=== PATIENT | male | born 1970 | race Two or more races ===

== ENCOUNTER 2016-06-27 17:59 | Emergency (ER) | payer MEDICAID ==
[~2016-06-27] VITALS: Ht 185.4 cm; Wt 74.8 kg
[~2016-06-27 17:59] MED LIST: LAMO200T34; LEVE100020; RISP1TAB60
[2016-06-27 18:27] VITALS: BP 108/66
== END 2016-06-27 18:30 | disposition home or self-care (01) ==
LOC: EDBD 17:59 → ER 18:03
DX: F41.9 Anxiety disorder, unspecified (principal); F17.210 Nicotine dependence, cigarettes, uncomplicated; F11.20 Opioid dependence, uncomplicated; F12.10 Cannabis abuse, uncomplicated; F32.9 Major depressive disorder, single episode, unspecified; Z90.89 Acquired absence of other organs; Z87.820 Personal history of traumatic brain injury

== ENCOUNTER 2016-07-11 09:52 | Emergency (ER) | payer MEDICAID ==
[~2016-07-11] VITALS: Ht 185.4 cm; Wt 78.5 kg
[2016-07-11] MEDS ORDERED: SOD CHL 0.45% 1,000 ML IV ONE (10:45)
[2016-07-11] MEDS ORDERED: ACCU-CHEK COMFORT CURVE STRIP VI ONE (10:45)
[2016-07-11 10:48] LABS: Basophils # (auto) 0.1 uL; Eosinophils # (auto) 0.2 uL; Eosinophils % (auto) 3.5 % (0.0-7.0); Hematocrit 48.3 % (41.0-53.0); Hemoglobin 16.3 g/dL (13.5-17.5); Lymphocytes # (auto) 0.8 uL; Lymphocytes % (auto) 13.5 % (10.0-50.0); Mean Corpuscular Hemoglobin 32.5 pg (28.0-32.0); Mean Corpuscular Hgb Conc. 33.7 g/dL (32.0-36.0); Mean Corpuscular Volume 96.5 fL (80.0-100.0); Mean Platelet Volume 8.4 fL (7.4-10.4); Monocytes # (auto) 0.6 uL; Monocytes % (auto) 10.8 % (0.0-12.0); Neutrophils # (auto) 4.1 uL; Neutrophils % (auto) 71.2 % (37.0-80.0); Platelet Count (auto) 237 10^3/uL (140-450); Red Cell Distribution Width 13.9 % (11.6-16.0); White Blood Cell 5.7 10^3/uL (4.4-10.8)
[2016-07-11 11:15] LABS: Albumin 4.3 g/dL (3.4-5.0); BUN/Creatinine Ratio 8.5; Bilirubin, Total 0.4 mg/dL (0.2-1.0); Calcium 9.2 mg/dL (8.5-10.1); Total Protein 8.4 g/dL (6.4-8.2)
[2016-07-11 11:46] LABS: Urine Bilirubin Negative (Negative); Urine Color Yellow (Yellow); Urine Glucose Normal (Normal); Urine Ketone Negative (Negative); Urine Nitrite Negative (Negative); Urine RBC 1 /hpf (0 - 3); Urine Urobilinogen Normal (Negative)
[2016-07-11 11:47] LABS: Urine Blood 1+ /uL (Negative)
[2016-07-11] MEDS ORDERED: MORPHINE SULF INJ 2 MG/ML SYRINGE 1ML IV ONE (12:15)
[2016-07-11] MEDS ORDERED: SODIUM CHLORIDE 0.9% 1,000 ML IV ONE (12:15)
[2016-07-11] MEDS ORDERED: LEVETIRACETAM INJ 1,000 MG in SODIUM CHL 0.9% 100 ML IV ONE (12:15)
[2016-07-11] MEDS ORDERED: ONDANSETRON HCL 4 MG/2 ML VIAL IV ONE (12:15)
[2016-07-11 14:48] VITALS: BP 125/84
== END 2016-07-11 14:48 | disposition home or self-care (01) ==
LOC: EDBD 09:52 → ER 09:58
DX: R56.9 Unspecified convulsions (principal); R51 Headache; F17.210 Nicotine dependence, cigarettes, uncomplicated; F11.10 Opioid abuse, uncomplicated; F12.10 Cannabis abuse, uncomplicated
CPT/HCPCS: 36415; 70450; 80053; 80307; 81001; 82542; 82962; 83735; 85025; 93005; 94761; 96361; 96365; 99285; J1953; J7030

== ENCOUNTER 2016-09-07 21:23 | Inpatient (IN) | payer MEDICAID ==
[~2016-09-07] VITALS: Ht 185.4 cm; Wt 77.1 kg
[~2016-09-07 21:23] MED LIST changes: -LAMO200T34; +LAMO200T34 PO; -LEVE100020; +LEVE100020 PO
[2016-09-08] MEDS ORDERED: LORazepam 2MG/ML-1ML VIAL IV ONE (06:15)
[2016-09-08 07:53] LABS: Basophils # (auto) 0 uL; Basophils % (auto) 0.6 % (0.0-2.0); CONDITION Y; Eosinophils # (auto) 0.3 uL; Eosinophils % (auto) 3.8 % (0.0-7.0); Hematocrit 42.8 % (41.0-53.0); Hemoglobin 14.3 g/dL (13.5-17.5); Lymphocytes # (auto) 1.2 uL; Lymphocytes % (auto) 17.2 % (10.0-50.0); Mean Corpuscular Hemoglobin 32.2 pg (28.0-32.0); Mean Corpuscular Hgb Conc. 33.4 g/dL (32.0-36.0); Mean Corpuscular Volume 96.4 fL (80.0-100.0); Mean Platelet Volume 8.4 fL (7.4-10.4); Monocytes # (auto) 0.8 uL; Neutrophils # (auto) 4.6 uL; Neutrophils % (auto) 67.4 % (37.0-80.0); Platelet Count (auto) 238 10^3/uL (140-450); Red Cell Distribution Width 12.8 % (11.6-16.0); White Blood Cell 6.9 10^3/uL (4.4-10.8)
[2016-09-08 08:12] LABS: INR 0.98 (0.9-1.15); Partial Thromboplastin Time 25.6 sec (22.64-33.71); Prothrombin Time 10.7 sec (9.37-12.3)
[2016-09-08 08:24] LABS: Albumin 3.6 g/dL (3.4-5.0); Alkaline Phosphatase 76 U/L (45-117); Anion Gap 4 (5-15); Aspartate Aminotransferase 77 U/L (15-37); BUN/Creatinine Ratio 22.7; Bilirubin, Total 0.9 mg/dL (0.2-1.0); Blood Urea Nitrogen 15 mg/dL (7-18); Calcium 8.5 mg/dL (8.5-10.1); Carbon Dioxide 29 mmol/L (21-32); Chloride 105 mmol/L (98-107); GFR African American 166 mL/min; GFR Non-African American 138 mL/min; Glucose 103 mg/dL (74-106); Magnesium 2.5 mg/dL (1.6-2.6); Potassium 3.5 mmol/L (3.5-5.1); Sodium 138 mmol/L (136-145)
[2016-09-08] MEDS ORDERED: MORPHINE SULF INJ 2 MG/ML SYRINGE 1ML IV PRN (08:30)
[2016-09-08] MEDS ORDERED: PROMETHAZINE HCL 25 MG/ML 1ML IV PRN (08:30)
[2016-09-08] MEDS ORDERED: LORazepam 2MG/ML-1ML VIAL IV PRN (08:30)
[2016-09-08] MEDS ORDERED: NITROGLYCERIN 0.4 MG SL TAB SL PRN (08:30)
[2016-09-08] MEDS ORDERED: LACTULOSE 20Gm/30ML SOLN PO PRN (08:30)
[2016-09-08] MEDS ORDERED: HYDROcodone-ACET 5/325MG TAB PO PRN (08:30)
[2016-09-08] MEDS ORDERED: ACETAMINOPHEN 500 MG TAB PO PRN (08:30)
[2016-09-08] MEDS ORDERED: MORPHINE SULFATE 4 MG/ML SYRG IV PRN (08:30)
[2016-09-08] MEDS: SODIUM CHLORIDE 0.9% 1,000 ML IV SCH ×2 (08:33→19:41)
[2016-09-08] MEDS: LEVETIRACETAM 500 MG TAB PO SCH ×2 (10:00→21:34)
[2016-09-08] MEDS: ENOXAPARIN SOD 40 MG/0.4 ML SYRINGE SC SCH (10:00)
[2016-09-08] MEDS ORDERED: lamoTRIgine 100 MG TAB PO SCH (10:00)
[2016-09-08] MEDS: risperiDONE 1 MG TAB PO SCH (10:00)
[2016-09-08 17:29] VITALS: BP 114/71
[2016-09-08] MEDS ORDERED: chlordiazePOXIDE HCL 25 MG CAP PO PRN (18:45)
[2016-09-08] MEDS ORDERED: THIAMINE HCL 100 MG/ML 2ML VIAL IV ONE (18:45)
[2016-09-08 20:00] VITALS: BP 118/53
[2016-09-08] MEDS: lamoTRIgine 100 MG TAB PO SCH (21:35)
[2016-09-08] MEDS: TEMAZEPAM 15 MG CAP PO PRN (21:35)
[2016-09-08 21:36] VITALS: BP 118/53
[2016-09-09] VITALS (7 sets, daily range): BP systolic 101–120; BP diastolic 53–64
[2016-09-09 06:40] LABS: Basophils # (auto) 0 uL; Basophils % (auto) 0.5 % (0.0-2.0); CONDITION Y; Eosinophils # (auto) 0.3 uL; Eosinophils % (auto) 4.3 % (0.0-7.0); Hematocrit 41.4 % (41.0-53.0); Hemoglobin 14.2 g/dL (13.5-17.5); Lymphocytes # (auto) 1.7 uL; Lymphocytes % (auto) 22.5 % (10.0-50.0); Mean Corpuscular Hemoglobin 32.7 pg (28.0-32.0); Mean Corpuscular Hgb Conc. 34.3 g/dL (32.0-36.0); Mean Corpuscular Volume 95.3 fL (80.0-100.0); Mean Platelet Volume 8.9 fL (7.4-10.4); Monocytes # (auto) 0.9 uL; Monocytes % (auto) 11.8 % (0.0-12.0); Neutrophils # (auto) 4.5 uL; Neutrophils % (auto) 60.9 % (37.0-80.0); Platelet Count (auto) 231 10^3/uL (140-450); Red Cell Distribution Width 12.8 % (11.6-16.0); White Blood Cell 7.5 10^3/uL (4.4-10.8)
[2016-09-09 06:52] LABS: Albumin 3.4 g/dL (3.4-5.0); BUN/Creatinine Ratio 21.4; Calcium 8.4 mg/dL (8.5-10.1); Potassium 3.8 mmol/L (3.5-5.1)
[2016-09-09 06:54] LABS: Bilirubin, Total 0.4 mg/dL (0.2-1.0); Total Protein 6.8 g/dL (6.4-8.2)
[2016-09-09] MEDS: LEVETIRACETAM 500 MG TAB PO SCH ×2 (09:29→22:17)
[2016-09-09] MEDS: THIAMINE HCL 100 MG/ML 2ML VIAL IV SCH (09:29)
[2016-09-09] MEDS: ENOXAPARIN SOD 40 MG/0.4 ML SYRINGE SC SCH (09:30)
[2016-09-09] MEDS: lamoTRIgine 100 MG TAB PO SCH ×2 (09:30→22:18)
[2016-09-09] MEDS: risperiDONE 1 MG TAB PO SCH (09:30)
[2016-09-09] MEDS: SODIUM CHLORIDE 0.9% 1,000 ML IV SCH (09:30)
[2016-09-09] MEDS: TEMAZEPAM 15 MG CAP PO PRN (22:18)
[2016-09-10] MEDS: SODIUM CHLORIDE 0.9% 1,000 ML IV SCH ×2 (00:17→13:37)
[2016-09-10 05:00] VITALS: BP 95/60
[2016-09-10 09:04] VITALS: BP 99/50
[2016-09-10] MEDS: THIAMINE HCL 100 MG/ML 2ML VIAL IV SCH (10:32)
[2016-09-10] MEDS: lamoTRIgine 100 MG TAB PO SCH ×2 (10:33→21:46)
[2016-09-10] MEDS: ENOXAPARIN SOD 40 MG/0.4 ML SYRINGE SC SCH (10:33)
[2016-09-10] MEDS: LEVETIRACETAM 500 MG TAB PO SCH ×2 (10:34→21:46)
[2016-09-10] MEDS: risperiDONE 1 MG TAB PO SCH (10:34)
[2016-09-10 12:33] VITALS: BP 110/67
[2016-09-10 17:15] VITALS: BP 99/56
[2016-09-10 20:00] VITALS: BP 97/76
[2016-09-10 22:00] VITALS: BP 146/74
[2016-09-11] MEDS: SODIUM CHLORIDE 0.9% 1,000 ML IV SCH ×2 (02:57→16:17)
[2016-09-11 05:00] VITALS: BP 108/59
[2016-09-11 08:52] VITALS: BP 106/58
[2016-09-11] MEDS: THIAMINE HCL 100 MG/ML 2ML VIAL IV SCH (10:05)
[2016-09-11] MEDS: LEVETIRACETAM 500 MG TAB PO SCH ×2 (10:05→21:30)
[2016-09-11] MEDS: lamoTRIgine 100 MG TAB PO SCH ×2 (10:05→21:30)
[2016-09-11] MEDS: risperiDONE 1 MG TAB PO SCH (10:06)
[2016-09-11] MEDS: ENOXAPARIN SOD 40 MG/0.4 ML SYRINGE SC SCH (10:06)
[2016-09-11 12:21] VITALS: BP 100/52
[2016-09-11 17:08] VITALS: BP 112/70
[2016-09-11] MEDS: TEMAZEPAM 15 MG CAP PO PRN (21:30)
[2016-09-11 22:00] VITALS: BP 104/56
[2016-09-12 05:00] VITALS: BP 96/53
[2016-09-12] MEDS: SODIUM CHLORIDE 0.9% 1,000 ML IV SCH (05:54)
[2016-09-12 08:35] VITALS: BP 90/59
[2016-09-12] MEDS: THIAMINE HCL 100 MG/ML 2ML VIAL IV SCH (10:06)
[2016-09-12] MEDS: risperiDONE 1 MG TAB PO SCH (10:07)
[2016-09-12] MEDS: lamoTRIgine 100 MG TAB PO SCH (10:07)
[2016-09-12] MEDS: LEVETIRACETAM 500 MG TAB PO SCH (10:07)
[2016-09-12] MEDS: ENOXAPARIN SOD 40 MG/0.4 ML SYRINGE SC SCH (10:07)
[2016-09-12 13:12] VITALS: BP 93/60
[2016-09-12 17:08] VITALS: BP 99/60
[2016-09-12 21:15] VITALS: BP 117/61
[2016-09-13] MEDS: lamoTRIgine 100 MG TAB PO SCH (01:55)
[2016-09-13] MEDS: LEVETIRACETAM 500 MG TAB PO SCH (01:55)
[2016-09-13 06:01] VITALS: BP 113/55
[2016-09-13 08:38] VITALS: BP 101/54
== END 2016-09-13 09:50 | disposition home or self-care (01) | DRG 53 ==
LOC: EDBD 21:23 → ER 21:43 → TELE 21:44 → TELE-E-ADS 09-08 10:30 → TELE-CENTR 09-08 15:16
PROVIDERS: ADMIT Internal Medicine; ATTEND Internal Medicine
DX: G40.919 Epilepsy, unspecified, intractable, without status epilepticus (principal); G93.49 Other encephalopathy; H53.462 Homonymous bilateral field defects, left side; I10 Essential (primary) hypertension; F32.9 Major depressive disorder, single episode, unspecified; Z59.0 Homelessness; Z87.820 Personal history of traumatic brain injury; Z98.2 Presence of cerebrospinal fluid drainage device; Z87.828 Personal history of other (healed) physical injury and trauma; F12.90 Cannabis use, unspecified, uncomplicated; F17.210 Nicotine dependence, cigarettes, uncomplicated; Z82.49 Family history of ischemic heart disease and other diseases of the circulatory system; Z83.3 Family history of diabetes mellitus; F41.9 Anxiety disorder, unspecified; Z71.89 Other specified counseling; Z80.9 Family history of malignant neoplasm, unspecified; F19.10 Other psychoactive substance abuse, uncomplicated; Z93.8 Other artificial opening status
CPT/HCPCS: 36415; 70450; 71020; 80053; 80320; 82542; 82962; 83735; 85025; 85610; 85652; 85730; 96374

== ENCOUNTER 2017-03-25 14:23 | Emergency (ER) | payer MEDICAID ==
[~2017-03-25] VITALS: Ht 182.9 cm; Wt 81.6 kg
[2017-03-25 15:36] LABS: Basophils # (auto) 0.1 uL; Eosinophils # (auto) 0.3 uL; Eosinophils % (auto) 4.5 % (0.0-7.0); Hematocrit 46.9 % (41.0-53.0); Lymphocytes # (auto) 1.6 uL; Lymphocytes % (auto) 22.8 % (10.0-50.0); Mean Corpuscular Hemoglobin 32.6 pg (28.0-32.0); Mean Corpuscular Hgb Conc. 34.1 g/dL (32.0-36.0); Mean Corpuscular Volume 95.7 fL (80.0-100.0); Monocytes # (auto) 0.7 uL; Monocytes % (auto) 9.6 % (0.0-12.0); Neutrophils # (auto) 4.5 uL; Neutrophils % (auto) 62.1 % (37.0-80.0); Nucleated Red Blood Cells % 0.1 %; Platelet Count (auto) 236 10^3/uL (140-450); White Blood Cell 7.2 10^3/uL (4.4-10.8)
[2017-03-25 15:55] LABS: BUN/Creatinine Ratio 17.6; Bilirubin, Total 0.3 mg/dL (0.2-1.0); Calcium 8.9 mg/dL (8.5-10.1); Magnesium 2.5 mg/dL (1.6-2.6); Potassium 3.9 mmol/L (3.5-5.1)
[2017-03-25 22:11] VITALS: BP 112/82
== END 2017-03-25 22:00 | disposition home or self-care (01) ==
LOC: EDBD 14:23 → ER 14:23
DX: R51 Headache (principal); R42 Dizziness and giddiness; F41.9 Anxiety disorder, unspecified; I10 Essential (primary) hypertension; F32.9 Major depressive disorder, single episode, unspecified; E11.9 Type 2 diabetes mellitus without complications; R53.1 Weakness; F17.210 Nicotine dependence, cigarettes, uncomplicated; F12.10 Cannabis abuse, uncomplicated; F11.10 Opioid abuse, uncomplicated
CPT/HCPCS: 36415; 70450; 80053; 83735; 85025; 93005

== ENCOUNTER 2018-07-20 10:21 | Emergency (ER) | payer MEDICAID ==
[~2018-07-20] VITALS: Ht 188 cm; Wt 76.2 kg
[2018-07-20 10:59] VITALS: BP 159/85
[2018-07-20] MEDS ORDERED: KETOROLAC TROMETH 60MG/2ML VIAL IM ONE (11:15)
== END 2018-07-20 12:02 | disposition home or self-care (01) ==
LOC: EDBD 10:21 → ER 10:21
DX: R51 Headache (principal); F17.210 Nicotine dependence, cigarettes, uncomplicated; F12.90 Cannabis use, unspecified, uncomplicated
CPT/HCPCS: 70450; 96372; 99284; J1885

== ENCOUNTER 2019-03-13 12:40 | Emergency (ER) | payer MEDICAID ==
[~2019-03-13] VITALS: Ht 188 cm; Wt 72.1 kg
[2019-03-13 13:53] VITALS: BP 114/72
== END 2019-03-13 16:38 | disposition home or self-care (01) ==
LOC: ER 12:40 → EDBD 12:40 → ER 16:38
DX: S01.112A Laceration without foreign body of left eyelid and periocular area, initial encounter (principal); X58.XXXA Exposure to other specified factors, initial encounter; Y93.89 Activity, other specified; Y92.89 Other specified places as the place of occurrence of the external cause; Y99.8 Other external cause status
CPT/HCPCS: 12013; 70450